=== PATIENT | female | born 2000 | race Caucasian/White ===

== ENCOUNTER 2021-02-23 12:04 | Emergency (ER) | payer OTHER ==
[~2021-02-23] VITALS: Ht 160 cm; Wt 90.7 kg
[2021-02-23 12:05] VITALS: BP_SYST 144
[2021-02-23] MEDS ORDERED: KETOROLAC TROMETHAMINE 60 MG/2 ML VIAL IM ONE (13:00)
[2021-02-23] MEDS ORDERED: PROCHLORPERAZINE EDISYLATE 10 MG/2 ML VIAL IM ONE (13:00)
[2021-02-23 13:13] LABS: BILIRUBIN,URINE NEGATIVE (NEGATIVE); BLOOD, URINE NEGATIVE (NEGATIVE); COLOR,URINE YELLOW (YELLOW); GLUCOSE,URINE NEGATIVE (NEGATIVE); KETONES,URINE NEGATIVE (NEGATIVE); LEUKOCYTE ESTERASE ,URINE NEGATIVE (NEGATIVE); NITRITE, URINE NEGATIVE (NEGATIVE); PROTEIN URINE NEGATIVE (NEGATIVE)
[2021-02-23 13:16] LABS: CLARITY/URINE SLIGHTLY HAZY (CLEAR)
[2021-02-23] MEDS ORDERED: TRAM50TA PO ×2 (13:56)
[2021-02-23 14:28] VITALS: BP_SYST 121
== END 2021-02-23 14:28 | disposition home or self-care (01) ==
LOC: SED 12:04
DX: G44.209 Tension-type headache, unspecified, not intractable (principal); R32 Unspecified urinary incontinence
CPT/HCPCS: 81003; 81025; 96372; 99284; J0780; J1885